=== PATIENT | male | born 1950 | race Hispanic/Latino ===

== ENCOUNTER 2017-03-28 21:08 | Emergency (ER) | payer OTHER ==
[2017-03-28 21:31] VITALS: BMI 33.3
[2017-03-28 21:35] VITALS: RESP 18; TEMP 98.4
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
[2017-03-28] MEDS ORDERED: Sodium Chloride 0.9% 1,000 ML IV STA (22:01)
[2017-03-28] MEDS ORDERED: Insulin Regular 1 UNITS/0.01 ML ML SC STA (22:03)
[2017-03-28 22:28] LABS: HEMATOCRIT 41.1 % (42.0-52.0); MEAN CELL VOLUME 83.5 fL (80.0-105.0); MEAN CORPUSCULAR HEMOGLOBIN 31.1 pg (25.0-35.0); MEAN CORPUSCULAR HGB CONC 37.2 g/dl (31.0-37.0); RED CELL DISTRIBUTION WIDTH 12.9 % (11.5-14.5); WHITE BLOOD COUNT 6.3 10^3/ul (4.5-11.0)
[2017-03-28 22:35] LABS: ALB/GLOB RATIO 1.3 (1.1-1.8); ALKALINE PHOSPHATASE 62 U/L (38-133); ALT/SGPT 31 U/L (7-56); AST/SGOT 30 U/L (15-59); BLOOD UREA NITROGEN 27 mg/dL (7-21); CALCIUM 9.6 mg/dL (8.4-10.5); CARBON DIOXIDE 26 mmol/L (21-33); CHLORIDE 96 mmol/L (98-107); GFR AFRICAN-AMERICAN > 60; POTASSIUM 3.8 mmol/L (3.6-5.0); SODIUM 133 mmol/L (132-148); TOTAL PROTEIN 7.5 g/dL (5.8-8.3)
[2017-03-28 22:47] LABS: GLUCOSE,RANDOM 403 mg/dL (70-110)
[2017-03-29 00:51] VITALS: BP 156/74; PULSE 68; O2SAT 100
--- NOTE | 2017-03-29 07:06 | RAD ---
HISTORY: medical clearance COMPARISON: 09/13/2016 FINDINGS: LUNGS: Central pulmonary vasculature is congested in appearance PLEURA: No significant pleural effusion identified, no pneumothorax apparent. CARDIOVASCULAR: Sternotomy wires again noted. Heart remains enlarged. OSSEOUS STRUCTURES: Degenerative changes right shoulder girdle VISUALIZED UPPER ABDOMEN: Normal. OTHER FINDINGS: None. IMPRESSION: Mild pulmonary venous congestion. Cardiomegaly.
--- NOTE | 2017-03-29 16:44 | CARD ---
APPROVED REPORT EKG Measurement Heart [id number] <Conclusion> Normal sinus rhythm Possible Left atrial enlargement T wave abnormality, consider inferolateral ischemia Abnormal ECG
== END 2017-03-29 00:50 | disposition home or self-care (01) ==
LOC: ED 21:08
DX: E11.9 Type 2 diabetes mellitus without complications (principal); Z79.4 Long term (current) use of insulin; I25.10 Atherosclerotic heart disease of native coronary artery without angina pectoris; I10 Essential (primary) hypertension; Z95.1 Presence of aortocoronary bypass graft; Z87.891 Personal history of nicotine dependence
CPT/HCPCS: 71010; 80053; 82948; 85027; 93005; 96360; 96372; 99283; J7040

== ENCOUNTER 2018-08-08 18:10 | Emergency (ER) | payer MEDICARE, MEDICAID ==
[2018-08-08 18:10] VITALS: BMI 33.3
[2018-08-08 18:18] VITALS: RESP 18; TEMP 98.3
[2018-08-08] MEDS ORDERED: TDAP Vaccine 0.5 mL Syr IM ONE (18:34)
--- NOTE | 2018-08-08 18:37 | ED PDOC ---
Arrival/HPI - General Chief Complaint: Trauma Time Seen by Provider: 08/08/18 18:23 Historian: Patient - History of Present Illness Narrative History of Present Illness (Text): 08/08/18 18:30 A 68 year old male presents to the emergency department complaining of right elbow/shoulder pain s/p fall. Patient reports he was discharged from [facility] 1 week ago S/P left [facility]. States at home, he was on his stepping stool to reach a cabinet, and resulted in falling to the floor onto his dominant right elbow and shoulder. Patient denies any head trauma, chest pain, dyspnea, nausea, vomiting, diarrhea, abdominal pain, or any other complaints at this time. PMD: Dr. Maty Davis 08/08/18 19:06 Associated Symptoms (Text): 08/08/18 19:07 Patient was standing on a stepping stool to reach above his head when he had a mechanical fall injuring his dominant right shoulder and elbow. Denies any other injury or trauma. Past Medical History - Provider Review Nursing Documentation Reviewed: Yes - Infectious Disease Hx of Infectious Diseases: None - Tetanus Immunization Tetanus Immunization: Unknown - Cardiac Hx Cardiac Disorders: Yes (CAD, QUADRUPLE BYPASS 2009) Hx Hypertension: Yes - Pulmonary Hx Respiratory Disorders: Yes Hx Asthma: Yes - Neurological Hx Neurological Disorder: No - HEENT Hx HEENT Disorder: No - Renal Hx Renal Disorder: No - Hematological/Oncological Hx Blood Disorders: No - Integumentary Hx Dermatological Disorder: No - Musculoskeletal/Rheumatological Hx Falls: No - Gastrointestinal Hx Gastrointestinal Disorders: Yes Hx Gall Bladder Disease: Yes (CHOLELITHIASIS) - Genitourinary/Gynecological Hx Genitourinary Disorders: No - Psychiatric Hx Psychophysiologic Disorder: No Hx Substance Use: No - Surgical History Hx Cardiac Catheterization: Yes Hx Carotid Endarterectomy: Yes (right carotid) Hx Cholecystectomy: Yes Hx Coronary Artery Bypass Graft: Yes Hx Coronary Stent: Yes Hx Open Heart Surgery: Yes (quadruple bypass 2009) Hx Vascular Surgery: Yes (RIGHT CAROTID ENDARDERECTOMY) - Anesthesia Hx Anesthesia: Yes Hx Anesthesia Reactions: No Hx Malignant Hyperthermia: No - Suicidal Assessment Feels Threatened In Home Enviroment: No Family/Social History - Physician Review Nursing Documentation Reviewed: Yes Family/Social History: No Known Family HX Smoking Status: Former Smoker Hx Alcohol Use: No (occasional) Hx Substance Use: No Hx Substance Use Treatment: No Allergies/Home Meds Allergies/Adverse Reactions: Allergies shellfish derived Allergy (Intermediate, Verified 07/20/18 11:34) RASH Home Medications: Home Meds Medication Instructions Recorded Confirmed Aspirin [Ecotrin] 325 mg PO DAILY 06/23/12 07/28/18 Lisinopril [Zestril] 20 mg PO DAILY 02/01/16 07/28/18 Atorvastatin [Lipitor] 80 mg PO DAILY 07/21/18 07/28/18 Clopidogrel [Plavix] 75 mg PO DAILY 07/21/18 07/28/18 Ergocalciferol (Vitamin D2) 50,000 unit PO QWK 07/21/18 07/28/18 [Vitamin D2] Furosemide 40 mg PO DAILY 07/21/18 07/28/18 Hydralazine HCl 100 mg PO DAILY 07/21/18 07/28/18 Insulin Lispro Mix 75/25 [humalog 70 units SC BID 07/21/18 07/21/18 Mix 75/25 75 U/Ml-25 U/Ml 10 Ml] Sitagliptin Phos/Metformin HCl 1 tab PO BID 07/21/18 07/28/18 [Janumet 50-500 mg Tablet] amLODIPine [Norvasc] 10 mg PO DAILY 07/21/18 07/28/18 Review of Systems - Physician Review All systems were reviewed & negative as marked: Yes - Review of Systems Constitutional: Fatigue. absent: Fevers, Other (no head trauma) Respiratory: absent: SOB Cardiovascular: absent: Chest Pain, Palpitations, Syncope Gastrointestinal: absent: Abdominal Pain, Diarrhea, Nausea, Vomiting Musculoskeletal: Other (right shoulder/elbow pain s/p fall) Neurological: absent: Headache, Dizziness, Focal Weakness Physical Exam Vital Signs Reviewed: Yes Vital Signs Temp Pulse Resp BP Pulse Ox 08/08/18 18:17 98.3 F 84 18 181/75 H 95 Temperature: Afebrile Blood Pressure: Hypertensive Pulse: Regular Respiratory Rate: Normal Appearance: Positive for: Well-Appearing, Non-Toxic, Uncomfortable Pain Distress: Mild Mental Status: Positive for: Alert and Oriented X 3 - Systems Exam Head: Present: Atraumatic, Normocephalic Pupils: Present: PERRL Extroacular Muscles: Present: EOMI Conjunctiva: Present: Normal Mouth: Present: Moist Mucous Membranes Neck: Present: Normal Range of Motion, Other (donato left carotid endarterectomy.) Respiratory/Chest: Present: Clear to Auscultation, Good Air Exchange. No: Respiratory Distress, Accessory Muscle Use Cardiovascular: Present: Regular Rate and Rhythm, Normal S1, S2. No: Murmurs Abdomen: No: Tenderness, Distention, Peritoneal Signs, Rebound, Guarding Back: Present: Normal Inspection Upper Extremity: Present: Normal ROM, NORMAL PULSES, Tenderness (mild tenderness to right elbow), Neurovascularly Intact, Other (superficial abrasion to right elbow; pain to right shoulder). No: Cyanosis, Edema, Swelling, Erythema, Deformity Lower Extremity: Present: Normal Inspection. No: Edema Neurological: Present: GCS=15, CN II-XII Intact, Speech Normal, Motor Func Grossly Intact Skin: Present: Warm, Dry, Normal Color. No: Rashes Psychiatric: Present: Alert, Oriented x 3, Normal Insight, Normal Concentration Medical Decision Making ED Course and Treatment: 08/08/18 18:34 Impression: 68 year old male with right elbow/shoulder pain s/p fall. Plan: -- Right Elbow X-Ray -- RIght Shoulder X-Ray -- Boostrix Vaccine -- Reassess and disposition Progress Notes: - RAD Interpretation Radiology Orders: 08/08/18 18:33 ELBOW RIGHT 3 VIEWS ROUTINE [RAD] Stat SHOULDER RIGHT [RAD] Stat X-ray right shoulder and right elbow shows calcific bursitis with no fracture or dislocation Garage Manager: ED Physician - Medication Orders Current Medication Orders: Tetanus/Reduced Diphtheria/Acell Pertussis (Boostrix Vaccine Inj) 0.5 ml IM .ONCE ONE Stop: 08/08/18 18:35 - Scribe Statement The provider has reviewed the documentation as recorded by the Baljinder Zarate Provider Scribe Provider Scribe Attestation: All medical record entries made by the Scribkeiko were at my direction and personally dictated by me. I have reviewed the chart and agree that the record accurately reflects my personal performance of the history, physical exam, medical decision making, and the department course for this patient. I have also personally directed, reviewed, and agree with the discharge instructions and disposition. Disposition/Present on Arrival - Present on Arrival Any Indicators Present on Arrival: No History of DVT/PE: No History of Uncontrolled Diabetes: No Urinary Catheter: No History of Decub. Ulcer: No History Surgical Site Infection Following: None - Disposition Have Diagnosis and Disposition been Completed?: Yes Diagnosis: Shoulder contusion, Elbow abrasion, Elbow contusion Disposition: HOME/ ROUTINE Disposition Time: 19:58 Patient Plan: Discharge Condition: GOOD Discharge Instructions (ExitCare): Skin Abrasions, Contusion (DC), Shoulder Pain (DC) Additional Instructions: Ice. Elevation. Tylenol as directed on bottle as needed. Follow-up with PMD. Follow up in ER as needed. Referrals: Maty Davis MD [Primary Care Provider] - Follow up with primary Forms: [employer] (Uzbek)
[2018-08-08] MEDS ORDERED: Oxycodone/Acetaminophen 5/325 mg Tab PO STA (20:04)
[2018-08-08 20:45] VITALS: BP 160/76; PULSE 90
[2018-08-08 20:46] VITALS: O2SAT 98
--- NOTE | 2018-08-09 08:43 | RAD ---
Date of service: 08/08/2018 PROCEDURE: Radiographs of the Right Shoulder HISTORY: Trauma COMPARISON: No prior. FINDINGS: BONES: Bone alignment and mineralization are normal. There is no acute displaced fracture or bone destruction. 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 SOFT TISSUES: There is a lobular calcification lateral to the greater tuberosity of the humerus and the acromioclavicular joint likely related to tendon/soft tissue calcifications. OTHER FINDINGS: None. IMPRESSION: No acute fracture or dislocation.
--- NOTE | 2018-08-09 08:46 | RAD ---
Date of service: 08/08/2018 PROCEDURE: Radiographs of the right elbow. HISTORY: trauma COMPARISON: No prior. FINDINGS: BONES: Bone alignment and mineralization are normal. There is no acute displaced fracture or bone destruction. JOINTS: Normal. No osteoarthritis. SOFT TISSUES: Normal. JOINT EFFUSION: None. OTHER FINDINGS: None. IMPRESSION: No acute fracture or dislocation.
== END 2018-08-08 20:45 | disposition home or self-care (01) ==
LOC: ED 18:10
DX: S40.011A Contusion of right shoulder, initial encounter (principal); S50.01XA Contusion of right elbow, initial encounter; W11.XXXA Fall on and from ladder, initial encounter; Y92.008 Other place in unspecified non-institutional (private) residence as the place of occurrence of the external cause; Z23 Encounter for immunization